=== PATIENT | female | born 1950 | race Caucasian/White ===

== ENCOUNTER → 2017-11-11 | Outpatient (CLI) | payer OTHER ==
[~2017-11-11] MED LIST: ALLO300T2 PO; ASPI-555 PO; CINN500C PO; LOSA1TAB37 PO; LOVA40TA2 PO; METF10004 PO; RUTI1TAB2 PO; VITAMIN D 3 PO
== END | disposition home or self-care (01) ==
LOC: RAH 09:45
PROVIDERS: ATTEND Family Medicine
DX: Z12.31 Encounter for screening mammogram for malignant neoplasm of breast (principal)
CPT/HCPCS: 77067

== ENCOUNTER → 2018-11-24 | Outpatient (CLI) | payer OTHER ==
[~2018-11-24] MED LIST changes: +METF-446 PO; -METF10004 PO
== END | disposition home or self-care (01) ==
LOC: RAH 08:32
PROVIDERS: ATTEND Family Medicine
DX: Z12.31 Encounter for screening mammogram for malignant neoplasm of breast (principal)
CPT/HCPCS: 77067

== ENCOUNTER → 2019-04-26 | Outpatient (CLI) | payer OTHER ==
--- NOTE | 2019-04-26 10:00 | NUR ---
MBSS COMPLETED. -S/S OF ASPIRATION. RECOMMEND REGULAR TEXTURE, THIN LIQUIDS; PILLS WHOLE WITH LIQUIDS. Addendum: 04/27/19 at 0858 by DELVIN CHILDS, [facility] Amended: Links added.
== END | disposition home or self-care (01) ==
LOC: RAH 09:56
PROVIDERS: ATTEND Otolaryngology
DX: R13.13 Dysphagia, pharyngeal phase (principal); I10 Essential (primary) hypertension; E11.9 Type 2 diabetes mellitus without complications; K21.9 Gastro-esophageal reflux disease without esophagitis; M10.9 Gout, unspecified; Z95.0 Presence of cardiac pacemaker
CPT/HCPCS: 74230; 92611

== ENCOUNTER → 2020-11-03 | Outpatient (CLI) | payer OTHER ==
[~2020-11-03] MED LIST changes: -ASPI-555 PO; +ASPI-556 PO
== END | disposition home or self-care (01) ==
LOC: RAH 09:40
PROVIDERS: ATTEND Family Medicine
DX: I08.3 Combined rheumatic disorders of mitral, aortic and tricuspid valves (principal); R55 Syncope and collapse; R01.1 Cardiac murmur, unspecified; Z95.0 Presence of cardiac pacemaker
CPT/HCPCS: 93306; 93356

== ENCOUNTER → 2021-01-30 | Outpatient (CLI) | payer OTHER | END | disposition home or self-care (01) | LOC: RAH 10:50 | PROVIDERS: ATTEND Family Medicine | DX: E11.9 Type 2 diabetes mellitus without complications (principal) | CPT/HCPCS: 93922 ==

== ENCOUNTER → 2022-08-24 | Outpatient (CLI) | payer OTHER | END | disposition home or self-care (01) | LOC: RAH 13:19 | PROVIDERS: ATTEND Family Medicine | DX: Z12.31 Encounter for screening mammogram for malignant neoplasm of breast (principal) | CPT/HCPCS: 77067 ==

== ENCOUNTER 2022-09-12 07:29 | Emergency (ER) | payer OTHER ==
[~2022-09-12] VITALS: Ht 170.2 cm; Wt 86.2 kg
[2022-09-12 08:39] LABS: BASOPHILS % (AUTO) 0.2 % (0.0-5.0); HEMATOCRIT 31.8 % (36-48); LYMPHOCYTES % (AUTO) 7.3 % (21.0-51.0); MEAN CORPUSCULAR HEMOGLOBIN 32.2 pg (27.0-33.0); MEAN CORPUSCULAR HGB CONC 34.3 g/dL (32.0-36.0); MEAN CORPUSCULAR VOLUME 94.1 fL (79-99); MONOCYTES % (AUTO) 5.8 % (3.0-13.0); NEUTROPHILS % (AUTO) 83.1 % (40.0-77.0); PLATELET COUNT (AUTO) 250 K/uL (130-400); RED BLOOD CELL COUNT(AUTO) 3.38 MIL/uL (4.00-5.50); RED CELL DISTRIBUTION WIDTH 13.8 % (11.0-15.5); WHITE BLOOD COUNT (AUTO) 12.1 K/uL (4.8-10.8)
[2022-09-12 08:49] LABS: APPEARANCE,URINE CLOUDY (CLEAR); BILIRUBIN,URINE NEGATIVE (NEGATIVE); COLOR,URINE YELLOW (YELLOW); GLUCOSE, URINE (UA) NEGATIVE (NEGATIVE); KETONES,URINE NEGATIVE (NEGATIVE); LEUKOCYTE ESTERASE ,URINE MODERATE Leu/uL (NEGATIVE); NITRATE,URINE NEGATIVE (NEGATIVE); OCCULT BLOOD,URINE TRACE-LYSED (NEGATIVE); PROTEIN,URINE TRACE mg/dL (NEGATIVE); UROBILINOGEN,URINE 0.2 mg/dL (0.2-1.0)
[2022-09-12 08:51] LABS: CREATININE 1.5 mg/dL (0.5-1.5); POTASSIUM 3.3 mmol/L (3.5-5.1)
[2022-09-12 08:55] LABS: ALBUMIN 3.2 g/dL (3.5-5.0); TOTAL PROTEIN, SERUM 6.4 g/dL (6.0-8.3)
[2022-09-12 09:00] LABS: BACTERIA,URINE Few /HPF (None Seen); RBC,URINE 0-1 /HPF (0-1)
[2022-09-12] MEDS ORDERED: POTASSIUM BICARB/CIT AC 25 MEQ TABLET.EFF PO ONE (09:00)
[2022-09-12] MEDS ORDERED: CEPH500B PO (09:25)
[2022-09-12 09:40] VITALS: BP 119/57
== END 2022-09-12 09:35 | disposition home or self-care (01) ==
LOC: EDH 07:29
DX: N39.0 Urinary tract infection, site not specified (principal); E11.649 Type 2 diabetes mellitus with hypoglycemia without coma; M79.605 Pain in left leg; E87.6 Hypokalemia; E11.40 Type 2 diabetes mellitus with diabetic neuropathy, unspecified; I10 Essential (primary) hypertension; Z79.82 Long term (current) use of aspirin; Z79.899 Other long term (current) drug therapy; Z88.1 Allergy status to other antibiotic agents; Z95.810 Presence of automatic (implantable) cardiac defibrillator
CPT/HCPCS: 36415; 70450; 80053; 81001; 85025; 87077; 87088; 87186; 93971

== ENCOUNTER → 2022-11-23 | Outpatient (CLI) | payer OTHER ==
[~2022-11-23] MED LIST changes: +CEPH500B PO
== END | disposition home or self-care (01) ==
LOC: RAH 12:25
PROVIDERS: ATTEND Internal Medicine Cardiovascular Disease
DX: M79.605 Pain in left leg (principal); I82.409 Acute embolism and thrombosis of unspecified deep veins of unspecified lower extremity
CPT/HCPCS: 93971

== ENCOUNTER → 2023-06-16 | Outpatient (CLI) | payer OTHER ==
[2023-06-16 12:38] LABS: CREATININE 1.3 mg/dL (0.5-1.5); POTASSIUM 4.2 mmol/L (3.5-5.1)
== END | disposition home or self-care (01) ==
LOC: LAB 10:45
PROVIDERS: ATTEND Internal Medicine Cardiovascular Disease
DX: I10 Essential (primary) hypertension (principal)
CPT/HCPCS: 36415; 80048

== ENCOUNTER → 2023-08-31 | Outpatient (CLI) | payer OTHER | END | disposition home or self-care (01) | LOC: RAH 11:24 | PROVIDERS: ATTEND Family Medicine | DX: Z12.31 Encounter for screening mammogram for malignant neoplasm of breast (principal); R92.323 Mammographic fibroglandular density, bilateral breasts | CPT/HCPCS: 77067 ==

== ENCOUNTER → 2023-09-14 | Outpatient (CLI) | payer OTHER ==
[2023-09-14 16:33] LABS: CHOLESTEROL 168 mg/dL (<200); HDL CHOLESTEROL 40 mg/dL (35-85); LDL DIRECT 102 mg/dL (0-99); TRIGLYCERIDES 159 mg/dL (30-200)
== END | disposition home or self-care (01) ==
LOC: LAB 11:20
PROVIDERS: ATTEND Internal Medicine Cardiovascular Disease
DX: E78.5 Hyperlipidemia, unspecified (principal)
CPT/HCPCS: 36415; 80061

== ENCOUNTER 2023-11-26 17:55 | Emergency (ER) | payer OTHER ==
[~2023-11-26] VITALS: Ht 160 cm; Wt 93.9 kg
[2023-11-26 18:19] VITALS: BP 159/75; PULSE 85; RESP 20
[2023-11-26 21:24] LABS: BASOPHILS # (AUTO) 0.05 K/uL (0.00-0.20); BASOPHILS % (AUTO) 0.4 % (0.0-5.0); EOSINOPHILS # (AUTO) 0.32 K/uL (0.00-0.70); EOSINOPHILS % (AUTO) 2.8 % (0.0-8.0); HEMATOCRIT 40.6 % (36-48); IMMATURE GRANULOCYTE ABSOLUTE 0.03 K/uL (0-1); LYMPHOCYTES # (AUTO) 4.2 K/uL (1.0-4.8); LYMPHOCYTES % (AUTO) 36.9 % (21.0-51.0); MEAN CORPUSCULAR HEMOGLOBIN 32.2 pg (27.0-33.0); MEAN CORPUSCULAR HGB CONC 34.2 g/dL (32.0-36.0); MONOCYTES # (AUTO) 0.8 K/uL (0.1-1.0); NEUTROPHILS % (AUTO) 52.6 % (40.0-77.0); PLATELET COUNT (AUTO) 315 K/uL (130-400); RED BLOOD CELL COUNT(AUTO) 4.32 MIL/uL (4.00-5.50); RED CELL DISTRIBUTION WIDTH 13.5 % (11.0-15.5); WHITE BLOOD COUNT (AUTO) 11.4 K/uL (4.8-10.8)
[2023-11-26 21:37] LABS: CREATININE 1.3 mg/dL (0.5-1.0)
[2023-11-26 21:48] LABS: ALBUMIN 3.7 g/dL (3.5-5.0); BILIRUBIN,TOTAL 0.3 mg/dL (0.2-1.0)
== END 2023-11-26 22:05 | disposition left against medical advice (07) ==
LOC: EDH 17:55
DX: R07.89 Other chest pain (principal); Z53.21 Procedure and treatment not carried out due to patient leaving prior to being seen by health care provider
CPT/HCPCS: 36415; 80053; 84484; 85025; 93005; 99281

== ENCOUNTER 2024-01-15 21:28 | Observation (INO) | payer OTHER ==
[~2024-01-15] VITALS: Ht 160 cm; Wt 91.6 kg
[2024-01-15 22:21] LABS: BASOPHILS # (AUTO) 0.03 K/uL (0.00-0.20); BASOPHILS % (AUTO) 0.3 % (0.0-5.0); EOSINOPHILS # (AUTO) 0.57 K/uL (0.00-0.70); EOSINOPHILS % (AUTO) 4.9 % (0.0-8.0); HEMATOCRIT 38.6 % (36-48); IMMATURE GRANULOCYTE ABSOLUTE 0.05 K/uL (0-1); LYMPHOCYTES # (AUTO) 3.2 K/uL (1.0-4.8); LYMPHOCYTES % (AUTO) 27.3 % (21.0-51.0); MEAN CORPUSCULAR HEMOGLOBIN 32.1 pg (27.0-33.0); MEAN CORPUSCULAR HGB CONC 34.7 g/dL (32.0-36.0); MEAN CORPUSCULAR VOLUME 92.6 fL (79-99); MONOCYTES # (AUTO) 0.7 K/uL (0.1-1.0); MONOCYTES % (AUTO) 5.8 % (3.0-13.0); NEUTROPHILS # (AUTO) 7.1 K/uL (1.8-7.7); NEUTROPHILS % (AUTO) 61.3 % (40.0-77.0); PLATELET COUNT (AUTO) 301 K/uL (130-400); RED BLOOD CELL COUNT(AUTO) 4.17 MIL/uL (4.00-5.50); RED CELL DISTRIBUTION WIDTH 13.6 % (11.0-15.5); WHITE BLOOD COUNT (AUTO) 11.6 K/uL (4.8-10.8)
[2024-01-15 22:28] LABS: CREATININE 1.2 mg/dL (0.5-1.0); POTASSIUM 3.8 mmol/L (3.5-5.1)
[2024-01-15 22:34] LABS: INR <= 0.93 (0.85-1.15); PROTHROMBIN TIME 10.8 SEC (9.6-11.6)
[2024-01-15 22:35] LABS: PARTIAL THROMBOPLASTIN TIME 33.5 SEC (26.3-35.5)
[2024-01-15 22:49] LABS: B-TYPE NATRIURETIC PEPTIDE 35 pg/mL (0-100)
[2024-01-16] VITALS (9 sets, daily range): BP systolic 143–196; BP diastolic 75–96; PULSE 71–81; RESP 16–19; O2SAT 96–99
[2024-01-16] MEDS ORDERED: GLUCAGON 1MG KIT 1 MG ML IM PRN
[2024-01-16] MEDS ORDERED: LACTULOSE 20 GM/30 ML UDCUP PO PRN
[2024-01-16] MEDS ORDERED: DEXTROSE 50%-WATER 50 ML DISP.SYRIN IV PRN
[2024-01-16] MEDS ORDERED: ONDANSETRON 4MG INJ IVP PRN
[2024-01-16] MEDS ORDERED: ALBUTEROL 0.083% 2.5 MG/3 ML INH IH PRN
[2024-01-16] MEDS: ACETAMINOPHEN 325 MG TAB ONE (03:11)
[2024-01-16] MEDS: HYDRALAZINE 20MG/ML VIAL IV PRN (03:40)
[2024-01-16] MEDS: ACETAMINOPHEN 325 MG TAB PO PRN (03:41)
[2024-01-16 04:48] LABS: BASOPHILS # (AUTO) 0.03 K/uL (0.00-0.20); BASOPHILS % (AUTO) 0.3 % (0.0-5.0); EOSINOPHILS # (AUTO) 0.58 K/uL (0.00-0.70); EOSINOPHILS % (AUTO) 5.7 % (0.0-8.0); HEMATOCRIT 36.7 % (36-48); IMMATURE GRANULOCYTE ABSOLUTE 0.04 K/uL (0-1); LYMPHOCYTES # (AUTO) 3.3 K/uL (1.0-4.8); LYMPHOCYTES % (AUTO) 31.9 % (21.0-51.0); MEAN CORPUSCULAR HEMOGLOBIN 32.7 pg (27.0-33.0); MEAN CORPUSCULAR HGB CONC 35.7 g/dL (32.0-36.0); MEAN CORPUSCULAR VOLUME 91.5 fL (79-99); MONOCYTES # (AUTO) 0.8 K/uL (0.1-1.0); MONOCYTES % (AUTO) 7.4 % (3.0-13.0); NEUTROPHILS # (AUTO) 5.6 K/uL (1.8-7.7); NEUTROPHILS % (AUTO) 54.3 % (40.0-77.0); PLATELET COUNT (AUTO) 277 K/uL (130-400); RED BLOOD CELL COUNT(AUTO) 4.01 MIL/uL (4.00-5.50); RED CELL DISTRIBUTION WIDTH 13.4 % (11.0-15.5); WHITE BLOOD COUNT (AUTO) 10.2 K/uL (4.8-10.8)
[2024-01-16 05:17] LABS: CREATININE 1.1 mg/dL (0.5-1.0); PHOSPHORUS 3.9 mg/dL (2.5-4.9); POTASSIUM 3.4 mmol/L (3.5-5.1); THYROID STIMULATING HORMONE 2.36 uIU/mL (0.36-3.74)
[2024-01-16] MEDS: INSULIN HUMULIN R 100 UNIT/ML 3ML SQ SCH (07:17)
[2024-01-16] MEDS ORDERED: GLIM4TAB36 PO (07:50)
[2024-01-16] MEDS ORDERED: GABA600T10 PO (07:50)
[2024-01-16] MEDS ORDERED: LOSA100T59 PO (07:50)
[2024-01-16] MEDS ORDERED: METO-391 PO (07:50)
[2024-01-16] MEDS ORDERED: FURO20TA4 PO (07:50)
[2024-01-16] MEDS ORDERED: ATOR40TA69 PO (07:50)
[2024-01-16] MEDS ORDERED: PANT20TA18 PO (07:50)
[2024-01-16] MEDS ORDERED: LEVO75CA5 PO (07:50)
[2024-01-16] MEDS: ENOXAPARIN SODIUM 40 MG/0.4 ML SYRINGE SQ SCH (09:47)
[2024-01-16] MEDS: ASPIRIN 81MG CHEW TAB PO SCH (09:47)
[2024-01-16] MEDS ORDERED: KCL 20 MEQ ERTAB PO PRN (11:00)
[2024-01-16] MEDS ORDERED: MAGNESIUM 2GM PREMIX 50ML 50 ML IV PRN (11:00)
[2024-01-16] MEDS ORDERED: NON-FORMULARY MEDICATION 1 EACH (Gabapentin 600 MG) PO PRN (11:00)
[2024-01-16] MEDS ORDERED: POTASSIUM CHLORIDE 20MEQ/100ML 100 ML IV PRN (11:00)
[2024-01-16] MEDS: POTASSIUM CHLORIDE 10% ELIXIR 20 MEQ/15 ML UDCUP PO PRN (12:23)
[2024-01-16 18:28] LABS: HEMATOCRIT 40.1 % (36-48); MEAN CORPUSCULAR HEMOGLOBIN 32.3 pg (27.0-33.0); MEAN CORPUSCULAR HGB CONC 35.4 g/dL (32.0-36.0); MEAN CORPUSCULAR VOLUME 91.3 fL (79-99); RED BLOOD CELL COUNT(AUTO) 4.39 MIL/uL (4.00-5.50); RED CELL DISTRIBUTION WIDTH 13.7 % (11.0-15.5); WHITE BLOOD COUNT (AUTO) 10.7 K/uL (4.8-10.8)
[2024-01-16] MEDS ORDERED: 0.9% NACL 500ML IV.SOLN 500 ML IV SCH (18:30)
[2024-01-16] MEDS: 0.9%NACL 1000ML 1,000 ML IV SCH (18:35)
[2024-01-16 18:39] LABS: POTASSIUM 4.2 mmol/L (3.5-5.1)
[2024-01-16 18:42] LABS: INR <= 0.93 (0.85-1.15); PROTHROMBIN TIME 10.9 SEC (9.6-11.6)
[2024-01-16 18:43] LABS: PARTIAL THROMBOPLASTIN TIME 36.8 SEC (26.3-35.5)
[2024-01-16] MEDS: ALLOPURINOL 300 MG TABLET PO SCH (19:35)
[2024-01-16] MEDS: ATORVASTATIN 40 MG TABLET PO SCH (19:35)
[2024-01-17] VITALS (16 sets, daily range): BP systolic 114–150; BP diastolic 56–87; PULSE 66–91; RESP 17–19; O2SAT 97–98
[2024-01-17 05:28] LABS: BASOPHILS # (AUTO) 0.04 K/uL (0.00-0.20); BASOPHILS % (AUTO) 0.4 % (0.0-5.0); EOSINOPHILS # (AUTO) 0.68 K/uL (0.00-0.70); EOSINOPHILS % (AUTO) 6.3 % (0.0-8.0); HEMATOCRIT 38.9 % (36-48); IMMATURE GRANULOCYTE ABSOLUTE 0.04 K/uL (0-1); LYMPHOCYTES # (AUTO) 2.8 K/uL (1.0-4.8); LYMPHOCYTES % (AUTO) 25.6 % (21.0-51.0); MEAN CORPUSCULAR HEMOGLOBIN 32.5 pg (27.0-33.0); MEAN CORPUSCULAR HGB CONC 34.4 g/dL (32.0-36.0); MEAN CORPUSCULAR VOLUME 94.4 fL (79-99); MONOCYTES # (AUTO) 0.7 K/uL (0.1-1.0); MONOCYTES % (AUTO) 6.5 % (3.0-13.0); NEUTROPHILS # (AUTO) 6.6 K/uL (1.8-7.7); NEUTROPHILS % (AUTO) 60.8 % (40.0-77.0); PLATELET COUNT (AUTO) 285 K/uL (130-400); RED BLOOD CELL COUNT(AUTO) 4.12 MIL/uL (4.00-5.50); RED CELL DISTRIBUTION WIDTH 13.6 % (11.0-15.5); WHITE BLOOD COUNT (AUTO) 10.8 K/uL (4.8-10.8)
[2024-01-17] MEDS: LEVOTHYROXINE 75 MCG TABLET PO SCH (06:00)
[2024-01-17] MEDS: PANTOPRAZOLE 40 MG TAB DR PO SCH (08:34)
[2024-01-17] MEDS: METOPROLOL SUCCINATE 50 MG TAB.SR.24H PO SCH (08:34)
[2024-01-17] MEDS: FUROSEMIDE 20 MG TABLET PO SCH (08:34)
[2024-01-17] MEDS: LOSARTAN 100 MG TABLET PO SCH (08:34)
[2024-01-17] MEDS ORDERED: MIDAZOLAM HCL 1 MG/ML 2ML VIAL ONE (12:58)
[2024-01-17] MEDS ORDERED: LIDOCAINE HCL 400MG/20ML VIAL ONE (12:58)
[2024-01-17] MEDS ORDERED: HEPARIN 10,000 UNIT/10ML (1,000 UNIT/ML) VIAL ONE (12:58)
[2024-01-17] MEDS ORDERED: IOHEXOL-350 75 ML VIAL IV ONE (13:00)
[2024-01-17] MEDS ORDERED: HYDRALAZINE 20MG/ML VIAL ONE (13:30)
[2024-01-17] MEDS ORDERED: ASPIRIN 325MG EC TAB PO ONE (13:33)
[2024-01-17] MEDS ORDERED: CLOPIDOGREL 300MG TAB ONE (13:33)
[2024-01-17] MEDS ORDERED: ONDANSETRON 4MG INJ ONE (14:03)
[2024-01-17] MEDS ORDERED: MORPHINE 4 MG SYG ONE (14:04)
[2024-01-18 04:43] VITALS: BP 118/68; PULSE 76; RESP 18
[2024-01-18] MEDS ORDERED: ASPI-1005 PO (06:34)
[2024-01-18] MEDS ORDERED: CLOP-31 PO (06:34)
[2024-01-18 07:58] VITALS: BP 146/77; PULSE 76; RESP 20
[2024-01-18 08:00] VITALS: O2SAT 98
[2024-01-18] MEDS: CLOPIDOGREL 75MG TAB PO SCH (09:59)
[2024-01-18 11:49] VITALS: BP 134/70; PULSE 77; RESP 17
== END 2024-01-18 14:45 | disposition home or self-care (01) ==
LOC: EDH 21:28 → EDHIP 23:40 → 4DH 01-16 01:21
PROVIDERS: ADMIT Internal Medicine Critical Care Medicine; ATTEND Internal Medicine Critical Care Medicine
DX: I25.110 Atherosclerotic heart disease of native coronary artery with unstable angina pectoris (principal); I12.9 Hypertensive chronic kidney disease with stage 1 through stage 4 chronic kidney disease, or unspecified chronic kidney disease; E11.22 Type 2 diabetes mellitus with diabetic chronic kidney disease; N18.31 Chronic kidney disease, stage 3a; E11.21 Type 2 diabetes mellitus with diabetic nephropathy; E03.9 Hypothyroidism, unspecified; E78.5 Hyperlipidemia, unspecified; E79.0 Hyperuricemia without signs of inflammatory arthritis and tophaceous disease; I25.10 Atherosclerotic heart disease of native coronary artery without angina pectoris; I35.0 Nonrheumatic aortic (valve) stenosis; I44.30 Unspecified atrioventricular block; R07.2 Precordial pain; Z79.899 Other long term (current) drug therapy; Z79.82 Long term (current) use of aspirin; Z90.710 Acquired absence of both cervix and uterus; Z95.0 Presence of cardiac pacemaker; Z95.5 Presence of coronary angioplasty implant and graft; Z88.5 Allergy status to narcotic agent; Z79.84 Long term (current) use of oral hypoglycemic drugs
CPT/HCPCS: 99285; 84484 ×4; 80048 ×4; 83880; 85025 ×3; 85378; 85610 ×2; 85730 ×2; 36415 ×3; 71045; 93005; 85027; 96374; 96376; 96372; 83036; 84443; 83735; 84100; 80061; 82948 ×10; 93306; 93458; 85347; J1815; G0378 ×59; J0360 ×3; J1650; C1769; C1887; C1894; C1874; C1760; J3490; J1644 ×2; J2250; J2405; J2270; Q9967; C9600; 99156; 99157

== ENCOUNTER 2024-03-27 08:48 | Day surgery (SDC) | payer OTHER ==
[2024-03-22 09:46] LABS: BASOPHILS # (AUTO) 0.05 K/uL (0.00-0.20); BASOPHILS % (AUTO) 0.5 % (0.0-5.0); EOSINOPHILS # (AUTO) 0.21 K/uL (0.00-0.70); HEMATOCRIT 42.2 % (36-48); IMMATURE GRANULOCYTE ABSOLUTE 0.05 K/uL (0-1); LYMPHOCYTES # (AUTO) 2.2 K/uL (1.0-4.8); LYMPHOCYTES % (AUTO) 21.2 % (21.0-51.0); MEAN CORPUSCULAR HEMOGLOBIN 32.4 pg (27.0-33.0); MEAN CORPUSCULAR HGB CONC 34.1 g/dL (32.0-36.0); MONOCYTES # (AUTO) 0.7 K/uL (0.1-1.0); MONOCYTES % (AUTO) 6.6 % (3.0-13.0); NEUTROPHILS # (AUTO) 7.2 K/uL (1.8-7.7); NEUTROPHILS % (AUTO) 69.2 % (40.0-77.0); PLATELET COUNT (AUTO) 290 K/uL (130-400); RED BLOOD CELL COUNT(AUTO) 4.44 MIL/uL (4.00-5.50); RED CELL DISTRIBUTION WIDTH 13.8 % (11.0-15.5); WHITE BLOOD COUNT (AUTO) 10.3 K/uL (4.8-10.8)
[2024-03-22 10:00] VITALS: BP 140/86; PULSE 70; RESP 18
[2024-03-22 10:00] LABS: CREATININE 1.7 mg/dL (0.5-1.0); INR 1.02 (0.85-1.15); POTASSIUM 3.8 mmol/L (3.5-5.1)
[2024-03-22 10:02] LABS: PARTIAL THROMBOPLASTIN TIME 33.4 SEC (26.3-35.5)
[2024-03-27] VITALS (7 sets, daily range): BP systolic 115–176; BP diastolic 54–82; PULSE 60–70; RESP 14–17
[~2024-03-27] VITALS: Ht 160 cm; Wt 96.1 kg
[~2024-03-27 08:48] MED LIST changes: -ASPI-556 PO; -CEPH500B PO; -CINN500C PO; +CLOP-31 PO; +EMPA10TA PO; +FURO20TA4 PO; +GABA600T10 PO; +GLIM4TAB36 PO; +LEVO75CA5 PO; -LOSA1TAB37 PO; +LOSA50TA64 PO; -LOVA40TA2 PO; -METF-446 PO; +METO-391 PO; +PANT20TA18 PO; +ROSU40TA70 PO; -RUTI1TAB2 PO; +SEMA2PEN SQ; -VITAMIN D 3 PO
[2024-03-27] MEDS: 0.9%NACL 1000ML 1,000 ML IV ONE (09:59)
[2024-03-27] MEDS ORDERED: LIDOCAINE HCL 400MG/20ML VIAL ONE (12:07)
[2024-03-27] MEDS ORDERED: ceFAZolin SODIUM 1 GM VIAL ONE (12:07)
[2024-03-27] MEDS ORDERED: MIDAZOLAM HCL 1 MG/ML 2ML VIAL ONE ×2 (12:08→12:26)
[2024-03-27] MEDS ORDERED: MEPERIDINE-PF 25 MG/ML SYG ONE ×2 (12:08→12:26)
[2024-03-27] MEDS ORDERED: LIDOCAINE HCL 1% MDV 50ML VIAL ONE (12:19)
[2024-03-27] MEDS ORDERED: BUPIvacaine/PF 0.25% 30ML VIAL IJ ONE (12:19)
[2024-03-27] MEDS ORDERED: IOHEXOL-350 50ML VIAL IV ONE (12:25)
[2024-03-27] MEDS ORDERED: TRAM50TA4 PO (13:21)
[2024-03-27] MEDS ORDERED: acetaMINOPHEN 500 MG TABLET PO PRN (13:30)
== END 2024-03-27 15:10 | disposition home or self-care (01) ==
LOC: DAH 08:48
PROVIDERS: ATTEND Internal Medicine Cardiovascular Disease
DX: Z45.010 Encounter for checking and testing of cardiac pacemaker pulse generator [battery] (principal); T82.191A Other mechanical complication of cardiac pulse generator (battery), initial encounter; I44.2 Atrioventricular block, complete; I10 Essential (primary) hypertension; E11.9 Type 2 diabetes mellitus without complications; E78.5 Hyperlipidemia, unspecified; I25.10 Atherosclerotic heart disease of native coronary artery without angina pectoris; Z90.710 Acquired absence of both cervix and uterus; Z90.49 Acquired absence of other specified parts of digestive tract; Z90.89 Acquired absence of other organs; Z88.1 Allergy status to other antibiotic agents; Z95.5 Presence of coronary angioplasty implant and graft; Z79.01 Long term (current) use of anticoagulants; Z79.82 Long term (current) use of aspirin; Z79.899 Other long term (current) drug therapy
CPT/HCPCS: 80048; 85025; 85610; 85730; 36415; 93005; 33228; 82948 ×2; C1785; J0690; J7030; J0665; J2250 ×2; J2175 ×2; J3490; A4215; A4222; A4221; A4663; A4216; A4606; A4223 ×3; 99156; 99157; Q9967

== ENCOUNTER → 2024-08-31 | Outpatient (CLI) | payer OTHER ==
[~2024-08-31] MED LIST changes: +GABA-1405 PO; -GABA600T10 PO; -ROSU40TA70 PO; +ROSU40TA88 PO; +TRAM50TA4 PO
--- NOTE | 2024-08-31 11:06 | HMCIMG ---
MAMMO SCREENING BILATERAL HISTORY: Screening mammogram. COMPARISON: 08/31/2023 TECHNIQUE: Bilateral screening mammogram with CAD was performed with craniocaudal and mediolateral oblique projections. FINDINGS: There are scattered areas of fibroglandular density. There is no evidence of a dominant mass, or suspicious microcalcification. There is no evidence of nipple retraction or skin thickening. IMPRESSION: 1. Stable mammogram. Patient was entered into a reminder system with a target due date for their next mammogram. BI-RADS: CATEGORY 2: BENIGN FINDINGS Recommend monthly self breast exam as well as annual clinical examination. A negative x-ray should not delay biopsy if a dominant or clinically suspicious mass is present, since 8-10% of cancers are not identified by mammography. Dense breasts particularly, may obscure an underlying neoplasm. Some of these may be detected clinically and therefore, clinical examination is an essential part of breast evaluation.
== END | disposition home or self-care (01) ==
LOC: RAH 09:31
PROVIDERS: ATTEND Family Medicine
DX: Z12.31 Encounter for screening mammogram for malignant neoplasm of breast (principal); R92.323 Mammographic fibroglandular density, bilateral breasts
CPT/HCPCS: 77067